=== PATIENT | female | born 1985 | race Two or more races ===

== ENCOUNTER → 2017-01-12 | Outpatient (CLI) | payer OTHER | LOC: FIMAGING 09:15 | PROVIDERS: ATTEND Family Medicine | DX: M25.571 Pain in right ankle and joints of right foot (principal) ==

== ENCOUNTER 2018-08-21 15:57 | Inpatient (IN) | payer BC ==
[2018-08-21] MEDS: LR 1,000 ML IV PRN (16:10)
[2018-08-21] MEDS ORDERED: AMMONIA AROMATIC 1 EACH AMP IH PRN (16:35)
[2018-08-21] MEDS ORDERED: OXYTOCIN/RINGERS LACTATE 1,000 ML IV PRN (16:35)
[2018-08-21] MEDS ORDERED: TERBUTALINE SULFATE 1 MG/ML VIAL IV PRN (16:35)
[2018-08-21] MEDS ORDERED: LIDOCAINE 1% 300 MG/30 ML SDV SC PRN (16:35)
[2018-08-21] MEDS ORDERED: IBUPROFEN 600 MG TAB PO PRN (16:35)
[2018-08-21] MEDS ORDERED: MISOPROSTOL 200 MCG TAB PO PRN (16:35)
[2018-08-21] MEDS ORDERED: EPSOM SALT 454 GM TP PRN (16:35)
[2018-08-21] MEDS ORDERED: OLIVE OIL 118 ML BTL MISC PRN (16:35)
--- NOTE | 2018-08-21 17:14 | PDGENHP ---
History and Physical History and Physical: CARE: [facility] and [facility] (transfer at 32 weeks) HPI: Patient is a 33 yo G 1 P 0 @ 41.1 weeks that presents to L&D after indeterminate NST in office. Her GRABIEL was 8 cm this afternoon, but the NST was not considered "reassuring" at that time. Decision was made to admit to L&D for cervical ripening. Upon admission the the patient experienced a FHR deceleration to 60 bpm for approximately 2 minutes. Resuscitation initiated by RN and FHR quickly returned to baseline. EDC: 08/13/18 which is based on LMP: 11/06/18 which is known and consistent with Ultrasound at 8 weeks. Her is complicated by: anemia, failed 1 hour GTT. Review of Systems: Constitutional: Denies any fever, chills, or fatigue HEENT: denies any visual changes, difficulty swallowing, hearing loss Cardiovascular: Denies any chest pain, palpitations, leg swelling Respiratory: denies any cough, wheezing, or shortness of breathe GI: Denies any nausea, vomiting, diarrhea, constipation : denies any dysuria, urgency, frequency, vaginal bleeding Musculoskeletal: denies any muscle or bone pain Skin: denies any rashes Neuro: denies any headache, seizures, lightheadedness, dizziness, or loss of consciousness Psychiatric: denies any depression, anxiety, or SI/HI thoughts HISTORY: Previous OB history: G0 Social history: , works full-time Family history: mother with thyroid disease, 2 mat-uncles with mental health issues, MGF with ETOHism, mother vitiligo, M uncle prostate CA Past medical history: UTI, abnormal PAP age 22yo Past surgical history: denies Medications: PNV, magnesium, iron dailly Allergies (list reaction): NKDA LABS: Rh: B+ ABS: Neg Rubella: Immune HbsAg: NR HIV: NR VDRL: NR 1hr: 138, 3 hour wnl GC: Neg Chlamydia: Neg Pap: Normal GBS: neg BMI: (prepreg) = 23 PHYSICAL EXAM: Constitutional: WN, A&Ox3 HEENT: normocephalic atraumatic, supple Heart: RRR, no murmur Chest: CTA-B Skin: warm, dry, intact Abdomen: Soft, nontender, gravid SVE: 1/80/-2 Extremities: trace edema, negative homans sign Neuro: grossly normal Psych: normal affect assessment: FHT baseline 150, +accels, + decels, moderate variability Contractions: toco occasional Assessment: 1) 33 yo G 1 P 0 with IUP@ 41.1 weeks 2) no signs of labor 3) GBS neg 4) Cat 2 FHR tracing Plan: 1) Admit to L&D 2) Cervical ripening this evening 3) Close surveillance
[2018-08-21 17:22] LABS: PLATELET COUNT 133 10^3/uL (150-400)
--- NOTE | 2018-08-21 18:15 | OBPROG ---
Labor Progress Note Assessment/Plan: Assessment: 41 week gestation cat 2 FHR tracing Plan: cervical ripening with jimenes balloon 08/21/18 18:11 Subjective/Intrapartum Course: 08/21/18 18:13 Pt denies pain at this time, FOB and mom at bedside for support. Objective: 08/21/18 16:20 Patient ABO/Rh B POSITIVE 08/21/18 16:20 VSS - SVE Dilation (cm): 1 Effacement (%): 75 Station: -2 Membranes: Intact - Contraction Pattern Assessment Current Contraction Pattern: Irregular - FHR Assessment Nguyen FHR (bpm): 135 (occasional deceleration to 110-120) FHR Pattern Variability: Moderate FHR Category: 2 - Procedures Non-surgical Procedures: Other (Specify) (cook catheter placed at this time with 60 cc in cervix and 40 cc in vagina) Oxytocin Orders Assessment - Pre-Induction/Augmentation Assessment Gestational Age: 41 week(s) and 1 day(s) ICD10 Worksheet Patient Problems: Problems Problem Status Onset with 41 completed weeks gestation Acute
[2018-08-21] MEDS ORDERED: OLIVE OIL 118 ML BTL ONE (18:18)
[2018-08-21] MEDS ORDERED: LIDOCAINE 1% 300 MG/30 ML SDV ONE (18:18)
[2018-08-21] MEDS ORDERED: OXYTOCIN 10 UNIT/ML VIAL ONE (18:18)
[2018-08-21] MEDS ORDERED: AMMONIA AROMATIC 1 EACH AMP IH ONE (18:18)
[2018-08-21] MEDS ORDERED: MISOPROSTOL 200 MCG TAB ONE (18:18)
[2018-08-21] MEDS ORDERED: TERBUTALINE SULFATE 1 MG/ML VIAL ONE (18:18)
[2018-08-21] MEDS ORDERED: diphenhydrAMINE 25 MG CAP PO PRN (18:45)
[2018-08-21] MEDS ORDERED: fentaNYL 100 MCG/2 ML INJ IVP PRN (18:45)
[2018-08-21] MEDS ORDERED: PROMETHAZINE HCL 25 MG/ML INJ IVP PRN (18:48)
[2018-08-21] MEDS ORDERED: BUTORPHANOL 1 MG/ML VIAL IVP PRN (18:50)
[2018-08-22] MEDS ORDERED: LR 500 ML IV PRN (06:01)
--- NOTE | 2018-08-22 06:01 | OBPROG ---
Labor Progress Note Assessment/Plan: Assessment: 41 week gestation cat 2 FHR tracing Plan: cervical ripening with jimenes balloon 08/21/18 18:11 Subjective/Intrapartum Course: 08/21/18 18:13 Pt denies pain at this time, FOB and mom at bedside for support. 08/22/18 05:59 FHT reassuring throughout the night. Cook catheter out at 2350 last evening. Pt rested during night. Starting pitocin at this time. Transfer of care for this pt to Ting Canseco CNM at 0700. Objective: 08/21/18 16:20 Patient ABO/Rh B POSITIVE 08/21/18 16:20 - SVE Membranes: Intact - Contraction Pattern Assessment Current Contraction Pattern: Irregular (q3-7 min) - FHR Assessment Nguyen FHR (bpm): 130 FHR Pattern Variability: Moderate FHR Category: 1 - Procedures Non-surgical Procedures: Other (Specify) (cook catheter placed at this time with 60 cc in cervix and 40 cc in vagina) Oxytocin Orders Assessment - Pre-Induction/Augmentation Assessment Gestational Age: 41 week(s) and 1 day(s) ICD10 Worksheet Patient Problems: Problems Problem Status Onset with 41 completed weeks gestation Acute
[2018-08-22] MEDS ORDERED: OXYTOCIN/RINGERS LACTATE 500 ML IV SCH (06:30)
[2018-08-22] MEDS: LR 1,000 ML IV PRN (07:17)
--- NOTE | 2018-08-22 09:51 | OBPROG ---
Labor Progress Note Assessment/Plan: Assessment: Category 1 strip Probable active labor based on vocalization and contraction frequency Plan: 08/22/18 09:50 adjust monitors to picker operator both fhts and contractions. Pt advised that we are unable to continue induction if we cannot view both. Discussed internal monitors if necessary. Subjective/Intrapartum Course: 08/21/18 18:13 Pt denies pain at this time, FOB and mom at bedside for support. 08/22/18 05:59 FHT reassuring throughout the night. Cook catheter out at 2350 last evening. Pt rested during night. Starting pitocin at this time. Transfer of care for this pt to Ting Canseco CNM at 0700. 08/22/18 09:48 Pt moaning through contractions. Feeling lots of pain in back. Objective: 08/21/18 16:20 Patient ABO/Rh B POSITIVE 08/21/18 16:20 Pitocin currently at 8 iu/hr. Having difficulty keeping fht on monitor due to patient position - SVE Membranes: Intact - Contraction Pattern Assessment Current Contraction Pattern: Regular (per palpatation uc's q 3 minutes; having a difficult time keeping contractions on monitor) - FHR Assessment Nguyen FHR (bpm): 130 (+ accels; no decels) FHR Pattern Variability: Moderate FHR Category: 1 - Procedures Non-surgical Procedures: Other (Specify) (cook catheter placed at this time with 60 cc in cervix and 40 cc in vagina) Oxytocin Orders Assessment - Pre-Induction/Augmentation Assessment Gestational Age: 41 week(s) and 1 day(s) ICD10 Worksheet Patient Problems: Problems Problem Status Onset with 41 completed weeks gestation Acute
[2018-08-22] MEDS ORDERED: PHENYLEPHRINE HCL 100 MCG/ML SYR ONE (10:46)
[2018-08-22] MEDS ORDERED: fentaNYL 2MCG/ML/BUP 0.1% RTU 100 ML BAG EP ONE (10:46)
[2018-08-22] MEDS ORDERED: PHENYLEPHRINE HCL 100 MCG/ML SYR IVP PRN (10:49)
[2018-08-22] MEDS ORDERED: ONDANSETRON 4 MG/2 ML VIAL IVP PRN (10:49)
[2018-08-22] MEDS ORDERED: NALOXONE HCL 0.4 MG/ML INJ IVP PRN (10:49)
--- NOTE | 2018-08-22 10:49 | PREANESOB ---
Obstetric Pre-Anesthesia Info - General Info Proposed Procedure: labor epidural : 1 Para: 0 NASIM: 08/13/18 Gestational Age: 41 week(s) and 1 day(s) - Info Status: Full Term FHR Pattern: Reassuring - Labor Status Cervical Dilation per last OB SVE: 1 Station per last OB SVE: -2 Pitocin: In Use Indications for Labor Analgesia: Augmentation of Labor, Pain Control Labor Epidural: Proposed Anesthesia Allergies/Adverse Reactions: Allergy/AdvReac Type Severity Reaction Status Date / Time No Known Drug Allergies Allergy Verified 08/21/18 16:35 Home Medications: Medication Instructions Recorded Iron 08/21/18 Vit27&Calcium/Iron/FA 1 each PO DAILY 08/21/18 [ Rx 1 Tablet (RX)] Visit Medications: Generic Name Dose Route Start Last Admin Trade Name Freq PRN Reason Stop Dose Admin Ammonia (Aromatic Spirit) 1 each 08/21/18 16:35 Ammonia Aromatic IH 08/31/18 16:34 ONCE PRN Fainting Butorphanol Tartrate 1 mg 08/21/18 18:50 Stadol IVP 08/31/18 18:49 Q4HRS PRN Pain, Severe Unable to Take PO Diphenhydramine HCl 50 mg 08/21/18 18:45 08/21/18 21:31 Benadryl PO 02/17/19 18:44 50 mg HS PRN Administration Sleep/Insomnia Fentanyl 100 mcg 08/21/18 18:45 Sublimaze IVP 08/31/18 18:44 Q4HRS PRN Pain, Severe Unable to Take PO Lactated Ringer's 1,000 mls @ 0 mls/hr 08/21/18 16:35 08/22/18 07:17 Lr IV 08/22/18 16:34 1,000 mls PRN PRN Administration SEE PROTOCOL CONDITIONS Protocol Per Protocol Oxytocin/Lactated Ringer's 1,000 mls @ 0 mls/hr 08/21/18 16:35 Pitocin 20 Units/Lr (Premix) IV PRN PRN Post bleeding As Directed Lactated Ringer's 500 mls @ 500 mls/hr 08/22/18 06:01 Lr IV 08/23/18 06:01 PRN PRN Maternal Hypotension Oxytocin/Lactated Ringer's 500 mls @ 0 mls/hr 08/22/18 06:30 08/22/18 07:15 Pitocin 30 Units/Lr (Premix) IV 02/18/19 06:29 500 mls CONT SANTINO Administration Protocol Per Protocol Ibuprofen 600 mg 08/21/18 16:35 Motrin PO ONCE PRN post , pain Lidocaine HCl 300 mg 08/21/18 16:35 Lidocaine Hcl 1% SC 02/17/19 16:34 ONCE PRN episiotomy Magnesium Sulfate 454 gm 08/21/18 16:35 Epsom Salt TP 02/17/19 16:34 Q1H PRN perineal discomfort Misoprostol 800 - 1,000 mcg 08/21/18 16:35 Cytotec PO 02/17/19 16:34 ONCE PRN Vaginal Atony/Bleeding Bivalve Oil 118 ml 08/21/18 16:35 Sweet Oil MISC 02/17/19 16:34 ONCE PRN perineal massage Promethazine HCl 12.5 mg 08/21/18 18:48 Phenergan IVP 02/17/19 18:47 Q6HRS PRN Achieve Desired Sedation Terbutaline Sulfate 0.25 mg 08/21/18 16:35 Brethine IV 02/17/19 16:34 ONCE PRN Tachysystole Discontinued Medications Generic Name Dose Route Start Last Admin Trade Name Freq PRN Reason Stop Dose Admin Ammonia (Aromatic Spirit) Confirm 08/21/18 18:18 Ammonia Aromatic Administered 08/21/18 18:19 Dose 1 each IH .STK-MED ONE Fentanyl/Bupivacaine HCl Confirm 08/22/18 10:46 Fentanyl/Bupivacaine/Ns 2 Mcg/Ml 0.1% (Premix Administered 08/22/18 10:47 Dose 100 ml EP .STK-MED ONE Lidocaine HCl Confirm 08/21/18 18:18 Lidocaine Hcl 1% Administered 08/21/18 18:19 Dose 300 mg .ROUTE .STK-MED ONE Misoprostol Confirm 08/21/18 18:18 Cytotec Administered 08/21/18 18:19 Dose 1,000 mcg .ROUTE .STK-MED ONE Bivalve Oil Confirm 08/21/18 18:18 Sweet Oil Administered 08/21/18 18:19 Dose 118 ml .ROUTE .STK-MED ONE Oxytocin Confirm 08/21/18 18:18 Pitocin Administered 08/21/18 18:19 Dose 30 unit .ROUTE .STK-MED ONE Phenylephrine HCl Confirm 08/22/18 10:46 Neosynephrine Administered 08/22/18 10:47 Dose 1,000 mcg .ROUTE .STK-MED ONE Terbutaline Sulfate Confirm 08/21/18 18:18 Brethine Administered 08/21/18 18:19 Dose 1 mg .ROUTE .STK-MED ONE - Vital Signs Height/Weight (Nursing): Height 160.02 cm Weight 78.925 kg - Focused Exam Neck exam: FROM Mallampati Score: Class 2 Mouth exam: normal dental/mouth exam Pulmonary: no respiratory distress, clear to auscultation Cardiovascular: regular rate and rhythym, no murmur, rub, or gallop Labs: 08/21/18 16:20 Patient ABO/Rh B POSITIVE 08/21/18 16:20 - Plan Consent Signed and on Chart: Yes Patient/Guardian Understands and Agrees to Plan: Yes
[2018-08-22] MEDS ORDERED: fentaNYL 2MCG/ML/BUP 0.1% RTU 100 ML EP SCH (11:00)
[2018-08-22] MEDS ORDERED: LR 500 ML IV SCH (11:00)
--- NOTE | 2018-08-22 13:10 | OBPROG ---
Labor Progress Note Assessment/Plan: Assessment: Category 1 strip Probable active labor based on vocalization and contraction frequency Category 2 strip Malposition Active labor Plan: 08/22/18 09:50 adjust monitors to spanish moss picker both fhts and contractions. Pt advised that we are unable to continue induction if we cannot view both. Discussed internal monitors if necessary. 08/22/18 13:13 Discussed goal of moving baby into optimal position. Moved way over to her right side, with left leg over peanut ball and right leg straight. Advised we would be change her position frequently as well as try the three sisters moves to encourage rotation. Subjective/Intrapartum Course: 08/21/18 18:13 Pt denies pain at this time, FOB and mom at bedside for support. 08/22/18 05:59 FHT reassuring throughout the night. Cook catheter out at 2350 last evening. Pt rested during night. Starting pitocin at this time. Transfer of care for this pt to Ting Canseco CNM at 0700. 08/22/18 09:48 Pt moaning through contractions. Feeling lots of pain in back. 08/22/18 13:03 Pt comfortable with an epidural in place. Has been rotating positions with assistance from RN and has been able to rest. Objective: 08/21/18 16:20 Patient ABO/Rh B POSITIVE 08/21/18 16:20 Leopolds performed, back on right side. Ultrasound found direct OP presentation. VE 65/80/-2, cervix stretchy, caput present apprx 3 cm - SVE Dilation (cm): 6 Effacement (%): 80 Station: -2 Membranes: Intact - Contraction Pattern Assessment Current Contraction Pattern: Regular (q 3 minutes on 8 mu/hr pitocin) - FHR Assessment Nguyen FHR (bpm): 130 (occasional variable decel; + accels) FHR Pattern Variability: Moderate FHR Category: 2 - Procedures Non-surgical Procedures: Other (Specify) (Ultrasound performed to verify position; direct OP) Oxytocin Orders Assessment - Pre-Induction/Augmentation Assessment Gestational Age: 41 week(s) and 1 day(s) ICD10 Worksheet Patient Problems: Problems Problem Status Onset with 41 completed weeks gestation Acute
--- NOTE | 2018-08-22 19:21 | OBPROG ---
Labor Progress Note Assessment/Plan: Assessment: Category 1 strip Probable active labor based on vocalization and contraction frequency Category 2 strip Malposition Active labor Assessment: Successful manual rotation to a OA position and baby descending Category 2 strip; baby tolerated rotation well Plan: 08/22/18 09:50 adjust monitors to picket labor union both fhts and contractions. Pt advised that we are unable to continue induction if we cannot view both. Discussed internal monitors if necessary. 08/22/18 13:13 Discussed goal of moving baby into optimal position. Moved way over to her right side, with left leg over peanut ball and right leg straight. Advised we would be change her position frequently as well as try the three sisters moves to encourage rotation. 08/22/18 20:12 Labor down and reassess in a half hour or when pt begins feeling pressure Anticipated . Subjective/Intrapartum Course: 08/21/18 18:13 Pt denies pain at this time, FOB and mom at bedside for support. 08/22/18 05:59 FHT reassuring throughout the night. Cook catheter out at 2350 last evening. Pt rested during night. Starting pitocin at this time. Transfer of care for this pt to Ting Canseco CNM at 0700. 08/22/18 09:48 Pt moaning through contractions. Feeling lots of pain in back. 08/22/18 13:03 Pt comfortable with an epidural in place. Has been rotating positions with assistance from RN and has been able to rest. Objective: 08/21/18 16:20 Patient ABO/Rh B POSITIVE 08/21/18 16:20 - SVE Dilation (cm): 10 Effacement (%): 100 Station: +3 Membranes: AROM, Intact Amniotic Fluid Color: Clear Dilation Complete Date: 08/22/18 (position ROT; confirmed with ultrasound) Dilation Complete Time: 17:28 - Contraction Pattern Assessment Current Contraction Pattern: Regular (q 3 minutes on 8 mu/hr pitocin) - FHR Assessment Nguyen FHR (bpm): 140 (occasional variable and early decel noted) FHR Pattern Variability: Minimal (minimal to moderate) FHR Category: 2 - Procedures Non-surgical Procedures: Other (Specify) (Reviewed with pt recommendation that baby be rotated prior to attempting pushing. Reviewed option of manual rotation including risks versus benefits. Pt consented. Right hand inserted into vagina to the vertex. Head gently flexed in between contaction towards symphis pubis. Then moved hand past baby's left ear to the back. During contracton gently rotated head so posterior fontanelle guided towards back. Baby easily rotated to an OA position and with the next contraction moved from a +1 station to a +3. ) Oxytocin Orders Assessment - Pre-Induction/Augmentation Assessment Gestational Age: 41 week(s) and 1 day(s) ICD10 Worksheet Patient Problems: Problems Problem Status Onset with 41 completed weeks gestation Acute
--- NOTE | 2018-08-22 20:17 | OBDEL ---
Info Type: Vaginal Presentation at Delivery: Vertex (OA to ROT presentation) L&D Analgesia/Anesthesia Type: Epidural GBS+: No Intrapartum Medications: Generic Name Dose Route Start Last Admin Trade Name Freq PRN Reason Stop Dose Admin Diphenhydramine HCl 50 mg 08/21/18 18:45 08/21/18 21:31 Benadryl PO 02/17/19 18:44 50 mg HS PRN Administration Sleep/Insomnia Oxytocin/Lactated Ringer's 500 mls @ 0 mls/hr 08/22/18 06:30 08/22/18 07:15 Pitocin 30 Units/Lr (Premix) IV 02/18/19 06:29 500 mls CONT SANTINO Administration Protocol Per Protocol Fentanyl/Bupivacaine HCl 100 mls @ 0 mls/hr 08/22/18 11:00 08/22/18 18:54 Fentanyl/Bupivacaine/Ns 2 Mcg/Ml 0.1% (Premix EP 09/01/18 10:59 100 mls CONT SANTINO Administration Protocol As Directed [place] Oil 118 ml 08/21/18 16:35 08/22/18 18:55 Sweet Oil MISC 02/17/19 16:34 1 btl ONCE PRN Administration perineal massage Discontinued Medications Generic Name Dose Route Start Last Admin Trade Name Freq PRN Reason Stop Dose Admin Lactated Ringer's 1,000 mls @ 0 mls/hr 08/21/18 16:35 08/22/18 07:17 Lr IV 08/22/18 16:34 1,000 mls PRN PRN Administration SEE PROTOCOL CONDITIONS Protocol Per Protocol - Hospital Course Intrapartum: 08/21/18 18:13 Pt denies pain at this time, FOB and mom at bedside for support. 08/22/18 05:59 FHT reassuring throughout the night. Cook catheter out at 2350 last evening. Pt rested during night. Starting pitocin at this time. Transfer of care for this pt to Ting Canseco CNM at 0700. 08/22/18 09:48 Pt moaning through contractions. Feeling lots of pain in back. 08/22/18 13:03 Pt comfortable with an epidural in place. Has been rotating positions with assistance from RN and has been able to rest. Indications for Delivery: Postterm Unfavorable Cervix (nonreassuring NST ) Vaginal Delivery - Delivery Provider Delivery Physician/CNM: Ting Canseco - Labor and Delivery Onset of Contractions Date: 08/22/18 Onset of Contractions Time: 08:45 Onset of Contractions Type: Induced (pitocin) Rupture of Membranes Date: 08/22/18 Rupture of Membranes Time: 16:41 Rupture of Membranes Type: Spontaneous Amniotic Fluid Color: Clear Dilation Complete Date: 08/22/18 (position ROT; confirmed with ultrasound) Dilation Complete Time: 17:28 Placenta Delivery Date: 08/22/18 Placenta Delivery Time: 19:37 Total Hours of Labor: 10 Non-surgical Procedures: Other (Specify) (Reviewed with pt recommendation that baby be rotated prior to attempting pushing. Reviewed option of manual rotation including risks versus benefits. Pt consented. Right hand inserted into vagina to the vertex. Head gently flexed in between contaction towards symphis pubis. Then moved hand past baby's left ear to the back. During contracton gently rotated head so posterior fontanelle guided towards back. Baby easily rotated to an OA position and with the next contraction moved from a +1 station to a +3. ) Laceration: 2nd Degree (Sulcus and perineal) Repair: 3-0, Vicryl Vaginal Sponge Count Correct: Yes Vaginal Needle Count Correct: Yes Vaginal Sweep Performed: Yes EBL: 300 Delivery Events: None Delivery Comment: Pushed strongly to the of a vigorous female in an OA to ROT presentation. The crying infant was immediately placed on the mother's abdomen and stimulated. The cord was clamped x 2 and cut by the FOB after done pulsating. Placenta delivered completed with intact membranes and a three vessel cord. Massaged firm with minimal bleeding noted. A 2nd degree laceration was noted along with a sulcus tear. Repaired in the usual fashion with 3.0 vicryl for hemostasis and approximation EBL 300. Apgars 8 & 9. At the time of this note mother and baby are stable in the room with her family at the bedside. - Medications Labor Augmentation/Induction Methods Used: Pitocin, Brito Bulb (Cook's balloon) Labor Augmentation/Induction Indication: Post Dates (with nonreassuring NST) [place] Data NASIM: 08/13/18 Gestational Age: 41 week(s) and 2 day(s) Nguyen Delivery Date: 08/22/18 Delivery Time: 19:23 Sex of Infant: Female Score (1 Min): 8 Score (5 Min): 9 ICD10 Worksheet Patient Problems: Problems Problem Status Onset Encounter for full-term uncomplicated delivery Acute with 41 completed weeks gestation Acute Second degree perineal laceration Acute - ICD10 Problem Qualifiers (1) Encounter for full-term uncomplicated delivery (2) Second degree perineal laceration
[2018-08-22] MEDS ORDERED: HYDROCORTISONE 0.5% CREAM TP PRN (20:30)
[2018-08-22] MEDS ORDERED: SIMETHICONE 80 MG TAB CHEW PO PRN (20:30)
[2018-08-22] MEDS: ACETAMINOPHEN 325 MG TAB PO PRN (21:32)
[2018-08-23] MEDS: IBUPROFEN 600 MG TAB PO SCH ×3 (05:14→17:51)
[2018-08-23] MEDS: ACETAMINOPHEN 325 MG TAB PO PRN ×3 (05:14→17:51)
--- NOTE | 2018-08-23 10:12 | OBPP ---
Progress Note Assessment/Plan: Assessment: 33 y/o P1 s/p PP day #1 Plan: Routine pp care Plan d/c tomorrow 08/23/18 10:11 Subjective/ Course: 08/23/18 10:09 Doing well this morning. Was able to get some sleep last night and baby is well, although a little sleepy this morning. Vag bleeding wnl, pain controlled with oral pain meds. Voiding, tolerating diet and activity. Plans to go home tomorrow. Objective: 08/21/18 16:20 Patient ABO/Rh B POSITIVE 08/21/18 16:20 Temp Pulse Resp BP Pulse Ox 36.7 C 95 16 89/60 L 95 08/23/18 10:07 08/23/18 10:07 08/23/18 10:07 08/23/18 10:07 08/23/18 10:07 Uterine Position/Fundal Height: At Umbilicus Uterine Tone: Firm Physical Exam - Physical Exam EENT: PERRL/EOMI Neck: non-tender, full range of motion Respiratory: normal breath sounds Cardiac/Chest: regular rate, rhythm Extremities: normal range of motion Back: Normal inspection Skin: normal color, warm/dry Neuro/Psych: alert, normal mood/affect, oriented x 3
--- NOTE | 2018-08-23 12:21 | POSTANESTH ---
Post Anesthetic Evaluation Cardiovascular Status: Normal, Stable Respiratory Status: Normal, Stable Level of Consciousness/Mental Status: Can Participate in Eval Pain Control: Adequate, Prn Tx Ordered Nausea/Vomiting Control: Adequate, Prn Tx Ordered Complications Possibly Related to Anesthesia: None Noted
--- NOTE | 2018-08-23 12:50 | PDPAINCON ---
Pain Management Consultation Patient referred by : [facility] - Subjective Pain is: low, well controlled Activity: able to ambulate - Objective Technique: continuous epidural Sensory and motor exam: block has resolved, no apparent ill effects Vital signs: stable - Assessment/Plan Additional comments: Pt tolerated epidural well. All block has resolved. No BURRELL/N /V/back pain or leg weakness at this time.
[2018-08-24] MEDS: IBUPROFEN 600 MG TAB PO SCH ×4 (00:19→13:02)
[2018-08-24] MEDS: ACETAMINOPHEN 325 MG TAB PO PRN ×3 (00:19→13:02)
--- NOTE | 2018-08-24 10:42 | OBGCSDC ---
General Delivery Information - General Info : 1 Para: 1 Abortions: 0 Type: Vaginal L&D Analgesia/Anesthesia Type: Epidural Admission Date: 08/21/18 Labs: Patient ABO/Rh B POSITIVE 08/21/18 16:20 Hct 40.9 % (38.0-47.0) 08/21/18 16:20 - Hospital Course Intrapartum: 08/21/18 18:13 Pt denies pain at this time, FOB and mom at bedside for support. 08/22/18 05:59 FHT reassuring throughout the night. Cook catheter out at 2350 last evening. Pt rested during night. Starting pitocin at this time. Transfer of care for this pt to Ting Canseco CNM at 0700. 08/22/18 09:48 Pt moaning through contractions. Feeling lots of pain in back. 08/22/18 13:03 Pt comfortable with an epidural in place. Has been rotating positions with assistance from RN and has been able to rest. : 08/23/18 10:09 Doing well this morning. Was able to get some sleep last night and baby is well, although a little sleepy this morning. Vag bleeding wnl, pain controlled with oral pain meds. Voiding, tolerating diet and activity. Plans to go home tomorrow. 08/24/18 10:41 S) Pt doing well, reports min pain and bleeding. she is ambulating and voiding without difficulty. She is . She desires discharge home today. O) VSS, afebrile constitutional: WNWF, A&Ox3 HEENT: normocephalic, atraumatic, supple Heart: RRR, No murmur Chest: CTA-B Abdomen: Soft, nontender Uterus: Firm at U-2 Lochia: Minimal rubra Perineum: Intact, healing well Extremities: Trace edema, and negative Yahir's sign Neuro: Grossly normal A) 33 year-old P1 S/P PPD#2 P) Discharge home today Continue Pelvic rest x6wks Discussed danger signs (infection, preeclampsia, depression, heavy bleeding, etc) RTO in 2/4/6 weeks Vaginal - Delivery Provider Delivery Physician/CNM: Ting Canseco - Diagnosis Labor: Induced (pitocin) Rupture of Membranes Type: Spontaneous Amniotic Fluid Color: Clear Laceration: 2nd Degree (Sulcus and perineal) Repair: 3-0, Vicryl Delivery Events: None - Procedures Non-surgical Procedures: Other (Specify) (Reviewed with pt recommendation that baby be rotated prior to attempting pushing. Reviewed option of manual rotation including risks versus benefits. Pt consented. Right hand inserted into vagina to the vertex. Head gently flexed in between contaction towards symphis pubis. Then moved hand past baby's left ear to the back. During contracton gently rotated head so posterior fontanelle guided towards back. Baby easily rotated to an OA position and with the next contraction moved from a +1 station to a +3. ) - Delivery Non-surgical Procedures: Other (Specify) (Reviewed with pt recommendation that baby be rotated prior to attempting pushing. Reviewed option of manual rotation including risks versus benefits. Pt consented. Right hand inserted into vagina to the vertex. Head gently flexed in between contaction towards symphis pubis. Then moved hand past baby's left ear to the back. During contracton gently rotated head so posterior fontanelle guided towards back. Baby easily rotated to an OA position and with the next contraction moved from a +1 station to a +3. ) EBL: 300 Data NASIM: 08/13/18 Gestational Age: 41 week(s) and 4 day(s) Nguyen Delivery Date: 08/22/18 Delivery Time: 19:23 Sex of : Female Weight (gm): 3300 g Score (1 Min): 8 Score (5 Min): 9 Discharge Information - Discharge Information Condition: Good Instruction/Follow Up: Two Weeks, Four Weeks, Six Weeks
[2018-08-24] MEDS ORDERED: DOCUSATE SODIUM 100 MG CAP PO SCH (11:30)
[2018-08-24 11:40] VITALS: BP 96/63
== END 2018-08-24 13:45 | disposition home or self-care (01) | DRG 807 ==
LOC: FLD 15:57 → FOB 08-22 22:01
PROVIDERS: ADMIT Advanced Practice Midwife; ATTEND Advanced Practice Midwife
PROC: 0U7C7DZ Dilation of Cervix with Intraluminal Device, Via Natural or Artificial Opening (ICD-10-PCS; principal; 2018-08-22)
PROC: 10S0XZZ Reposition Products of Conception, External Approach (ICD-10-PCS; principal; 2018-08-22)
PROC: 10E0XZZ Delivery of Products of Conception, External Approach (ICD-10-PCS; principal; 2018-08-22)
PROC: 3E033VJ Introduction of Other Hormone into Peripheral Vein, Percutaneous Approach (ICD-10-PCS; principal; 2018-08-22)
PROC: 0KQM0ZZ Repair Perineum Muscle, Open Approach (ICD-10-PCS; principal; 2018-08-22)
DX: O48.0 Post-term pregnancy (principal); O70.1 Second degree perineal laceration during delivery; O32.8XX0 Maternal care for other malpresentation of fetus, not applicable or unspecified; Z3A.41 41 weeks gestation of pregnancy; Z37.0 Single live birth
CPT/HCPCS: J2370; J2590; J3105

== ENCOUNTER → 2018-10-03 | Outpatient (CLI) | payer BC | LOC: FLACT 12:58 ==